=== PATIENT | male | born 1965 | race Caucasian/White ===

== ENCOUNTER 2024-09-15 08:05 | Inpatient (IN) | payer SELFPAY ==
[~2024-09-15] VITALS: Ht 180.3 cm; Wt 97.7 kg
[2024-09-15] VITALS (38 sets, daily range): BP systolic 117–184; BP diastolic 77–126; PULSE 56–80; RESP 5–19; TEMP 36.55848–36.9474; O2SAT 95–100
[2024-09-15] MEDS ORDERED: IODIXANOL 320 MG/ML 150ML BOTTLE IV ONE (08:18)
[2024-09-15] MEDS ORDERED: HEPARIN 1000 UNITS/ML 10ML ONE (08:18)
[2024-09-15] MEDS ORDERED: LIDOCAINE HCL 1% 20ML VIAL ONE (08:18)
[2024-09-15] MEDS ORDERED: EPINEPHRINE 0.1MG/ML (1:10,000) 10ML SYR ONE (08:19)
[2024-09-15] MEDS ORDERED: ATROPINE SULFATE 1MG/10ML SYR ONE (08:19)
[2024-09-15] MEDS ORDERED: MIDAZOLAM HCL 2 MG/2 ML VIAL ONE (08:23)
[2024-09-15] MEDS ORDERED: FENTANYL CITRATE/PF 50MCG/ML 2ML VIAL ONE (08:23)
[2024-09-15] MEDS: HEPARIN 5000 UNITS/ML VIAL IV ONE (08:24)
[2024-09-15] MEDS: ASPIRIN 325MG TABLET PO ONE (08:26)
[2024-09-15 08:32] LABS: BASOPHILS % 0.6 % (0.0-2.0); EOSINOPHILS % 0.8 % (0.0-5.0); HEMATOCRIT. 43.9 % (42.0-52.0); HEMOGLOBIN. 14.6 g/dL (14.0-18.0); LYMPHOCYTES % 19.6 % (20.0-50.0); MEAN CORPUSCULAR HEMOGLOBIN 30.3 pg (28.0-32.0); MEAN CORPUSCULAR HGB CONC 33.3 g/dL (31.0-37.0); MEAN CORPUSCULAR VOLUME 91.2 fL (80.0-94.0); MEAN PLATELET VOLUME 7.6 fl (7.4-10.4); PLATELET 286 x1000/uL (130-400); RED BLOOD CELL COUNT 4.81 mill/uL (4.7-6.1); RED CELL DISTRIBUTION WIDTH 13.7 % (11.6-14.6); WHITE BLOOD COUNT 10.1 x1000/uL (4.5-11.0)
[2024-09-15] MEDS ORDERED: VERAPAMIL HCL 2.5 MG/1 ML 2ML VIAL IV ONE (08:35)
[2024-09-15] MEDS ORDERED: ONDANSETRON HCL 4MG/2ML INJ ONE (08:36)
[2024-09-15 08:43] LABS: CHLORIDE 106 mEq/L (98-107); POTASSIUM 3.8 mEq/L (3.5-5.1); SODIUM 138 mEq/L (136-145)
[2024-09-15 08:44] LABS: CALCIUM 9.5 mg/dL (8.7-10.4); CARBON DIOXIDE 27 mEq/L (21-32)
[2024-09-15 08:49] LABS: CREATININE 0.9 mg/dL (0.6-1.3); GLUCOSE 151 mg/dL (70-105); UREA NITROGEN BLOOD 17 mg/dL (9-23)
[2024-09-15] MEDS ORDERED: HYDRALAZINE 20MG/ML VIAL ONE (09:37)
[2024-09-15 09:48] LABS: TROPONIN I HIGH SENSITIVITY 445 ng/L (3.0-53)
[2024-09-15] MEDS ORDERED: CLOPIDOGREL 75MG TABLET ONE (09:50)
[2024-09-15] MEDS ORDERED: ACETAMINOPHEN 325MG TABLET PO PRN ×3 (10:45→11:15)
[2024-09-15] MEDS ORDERED: GUAIFENESIN 200MG/10ML SUGAR FREE UDC PO PRN (10:45)
[2024-09-15] MEDS ORDERED: IPRATROPIUM/ALBUTEROL 0.5-3(2.5)MG/3ML NEB HHN PRN (10:45)
[2024-09-15] MEDS ORDERED: ONDANSETRON HCL 4MG/2ML INJ IV PRN (10:45)
[2024-09-15] MEDS ORDERED: ATROPINE SULFATE 1MG/10ML SYR IV PRN (11:15)
[2024-09-15] MEDS ORDERED: MORPHINE SULFATE/PF 1 MG/ML 100 MG in BAG 1 EACH IV PRN (11:45)
[2024-09-15] MEDS: LOSARTAN 25 MG TABLET PO SCH (12:15)
[2024-09-15] MEDS: NITROGLYCERIN 0.4MG TABLET SL SL PRN (12:16)
[2024-09-15] MEDS ORDERED: NALOXONE HCL 0.4MG/ML VIAL IV PRN (12:30)
[2024-09-15] MEDS: MORPHINE SULFATE 2 MG/ML INJ (NOT FOR IM USE) IV PRN (12:55)
[2024-09-15 13:00] LABS: HEMATOCRIT 44.7 % (42.0-52.0); HEMOGLOBIN 14.6 g/dL (14.0-18.0); MEAN CORPUSCULAR HEMOGLOBIN 30.1 pg (28.0-32.0); MEAN CORPUSCULAR HGB CONC 32.6 g/dL (31.0-37.0); MEAN CORPUSCULAR VOLUME 92.3 fL (80.0-94.0); PLATELET 259 x1000/uL (130-400); RED BLOOD CELL COUNT 4.84 mill/uL (4.7-6.1); RED CELL DISTRIBUTION WIDTH 14.3 % (11.6-14.6); WHITE BLOOD COUNT 8.2 x1000/uL (4.5-11.0)
[2024-09-15 13:03] LABS: VITAMIN B12 SERUM 424 pg/mL (211-911)
[2024-09-15 13:26] LABS: CALCIUM 9.3 mg/dL (8.7-10.4); CARBON DIOXIDE 24 mEq/L (21-32)
[2024-09-15 13:31] LABS: CREATININE 0.8 mg/dL (0.6-1.3); GLUCOSE 124 mg/dL (70-105); IRON 101 ug/dL (65-175)
[2024-09-15 13:32] LABS: LDL CHOLESTEROL 182 mg/dL (5-100); TRIGLYCERIDE 107 mg/dL (0-150); UREA NITROGEN BLOOD 14 mg/dL (9-23)
[2024-09-15 13:33] LABS: ALANINE AMINOTRANSFERASE 25 IU/L (10-49); ALBUMIN 4.5 g/dL (3.2-4.8); ASPARTATE AMINOTRANSFERASE 56 IU/L (<34); CHOLESTEROL 256 mg/dL (<200); HDL CHOLESTEROL 56 mg/dL (>55)
[2024-09-15 13:34] LABS: BILIRUBIN TOTAL 0.6 mg/dL (0.1-1.0); PROTEIN TOTAL 6.9 g/dL (6.0-8.3); TOTAL IRON BINDING CAPACITY 231 ug/dl (250-425)
[2024-09-15 13:36] LABS: THYROID STIMULATING HORMONE 0.73 uIU/mL (0.55-4.78)
[2024-09-15 13:49] LABS: CHLORIDE 105 mEq/L (98-107); POTASSIUM 3.9 mEq/L (3.5-5.1); SODIUM 139 mEq/L (136-145)
[2024-09-15] MEDS: CLONIDINE 0.1MG TABLET PO PRN (14:15)
[2024-09-15] MEDS ORDERED: HYDRALAZINE 20MG/ML VIAL IV PRN (16:00)
[2024-09-15 16:23] LABS: CREATINE KINASE MB FRACTION 210.7 ng/mL (0.5-3.6)
[2024-09-15] MEDS: AMLODIPINE 10MG TABLET PO SCH (16:29)
[2024-09-15] MEDS: CARVEDILOL 6.25 MG TABLET PO NR (16:29)
[2024-09-15 17:58] LABS: TROPONIN I HIGH SENSITIVITY 3088 ng/L (3.0-53)
[2024-09-15 19:19] LABS: TROPONIN I HIGH SENSITIVITY 36882 ng/L (3.0-53)
[2024-09-15] MEDS: CARVEDILOL 6.25 MG TABLET PO SCH (21:00)
[2024-09-15] MEDS ORDERED: METOPROLOL TARTRATE 25MG TABLET PO SCH (21:00)
[2024-09-15] MEDS: ATORVASTATIN CALCIUM 40MG TABLET PO SCH (21:18)
[2024-09-16] VITALS (22 sets, daily range): BP systolic 100–138; BP diastolic 55–92; PULSE 57–74; RESP 8–22; TEMP 36.78072–37.11408; O2SAT 94–99
[2024-09-16 02:52] LABS: CREATINE KINASE MB FRACTION > 300.0 ng/mL (0.5-3.6)
[2024-09-16 03:06] LABS: CREATINE KINASE 2253 IU/L (46-171)
[2024-09-16 04:17] LABS: TROPONIN I HIGH SENSITIVITY > 50000 ng/L (3.0-53)
[2024-09-16 06:48] LABS: CARBON DIOXIDE 27 mEq/L (21-32); CHLORIDE 102 mEq/L (98-107); POTASSIUM 3.9 mEq/L (3.5-5.1); SODIUM 138 mEq/L (136-145)
[2024-09-16 06:49] LABS: CALCIUM 9.2 mg/dL (8.7-10.4)
[2024-09-16 06:50] LABS: CREATINE KINASE MB FRACTION 287.3 ng/mL (0.5-3.6)
[2024-09-16 06:54] LABS: CREATININE 0.8 mg/dL (0.6-1.3); GLUCOSE 105 mg/dL (70-105); UREA NITROGEN BLOOD 13 mg/dL (9-23)
[2024-09-16 07:06] LABS: CREATINE KINASE 1736 IU/L (46-171)
[2024-09-16 07:09] LABS: BASOPHILS % 0.5 % (0.0-2.0); HEMATOCRIT. 43.1 % (42.0-52.0); HEMOGLOBIN. 14.8 g/dL (14.0-18.0); LYMPHOCYTES % 26.6 % (20.0-50.0); MEAN CORPUSCULAR HEMOGLOBIN 30.8 pg (28.0-32.0); MEAN CORPUSCULAR HGB CONC 34.2 g/dL (31.0-37.0); MEAN CORPUSCULAR VOLUME 89.9 fL (80.0-94.0); MEAN PLATELET VOLUME 7.6 fl (7.4-10.4); MONOCYTES % 8.4 % (2.0-8.0); NEUTROPHILS % 62.5 % (40.0-76.0); PLATELET 258 x1000/uL (130-400); RED BLOOD CELL COUNT 4.79 mill/uL (4.7-6.1); RED CELL DISTRIBUTION WIDTH 13.7 % (11.6-14.6)
[2024-09-16 07:55] LABS: TROPONIN I HIGH SENSITIVITY 47958 ng/L (3.0-53)
[2024-09-16] MEDS: ASPIRIN 81MG TABLET PO SCH (08:48)
[2024-09-16] MEDS: CLOPIDOGREL 75MG TABLET PO SCH (08:48)
[2024-09-16 12:13] LABS: TROPONIN I HIGH SENSITIVITY 33928 ng/L (3.0-53)
[2024-09-16] MEDS ORDERED: CLOP-31 MT (16:41)
[2024-09-16] MEDS ORDERED: ASPI-1497 MT ×2 (16:41→17:32)
[2024-09-16] MEDS ORDERED: LIP40 MT (16:41)
[2024-09-16] MEDS ORDERED: CLOP-31 PO (17:32)
[2024-09-16] MEDS ORDERED: COR6 PO (17:32)
[2024-09-16] MEDS ORDERED: AMLO10TA80 PO (17:32)
[2024-09-16] MEDS ORDERED: LIP40 PO (17:32)
[2024-09-17 09:10] LABS: FOLATE HEMATOCRIT 43.4 % (37.5-51.0)
== END 2024-09-16 13:00 | disposition home or self-care (01) | DRG 174 ==
LOC: ER 08:05 → CVICU 10:10 → EDBEDREQ 10:24 → EDBEDREQTM 10:24
PROVIDERS: ADMIT Internal Medicine; ATTEND Internal Medicine
PROC: 4A023N7 Measurement of Cardiac Sampling and Pressure, Left Heart, Percutaneous Approach (ICD-10-PCS; principal; 2024-09-15)
PROC: 027035Z Dilation of Coronary Artery, One Artery with Two Drug-eluting Intraluminal Devices, Percutaneous Approach (ICD-10-PCS; 2024-09-15)
PROC: B211YZZ Fluoroscopy of Multiple Coronary Arteries using Other Contrast (ICD-10-PCS; 2024-09-15)
PROC: B215YZZ Fluoroscopy of Left Heart using Other Contrast (ICD-10-PCS; 2024-09-15)
PROC: B240ZZ3 Ultrasonography of Single Coronary Artery, Intravascular (ICD-10-PCS; 2024-09-15)
DX: I21.29 ST elevation (STEMI) myocardial infarction involving other sites (principal); F17.210 Nicotine dependence, cigarettes, uncomplicated; I25.10 Atherosclerotic heart disease of native coronary artery without angina pectoris; I10 Essential (primary) hypertension; Z79.02 Long term (current) use of antithrombotics/antiplatelets; Z79.82 Long term (current) use of aspirin; Z79.899 Other long term (current) drug therapy; Z83.3 Family history of diabetes mellitus
CPT/HCPCS: 36415; 80048; 80053; 80061; 82550; 82553; 82607; 82747; 83036; 83540; 83550; 83735; 83880; 84100; 84443; 84484; 85014; 85025; 85027; 85347; 86850; 86900; 92928; 92978; 93005; 93306; 93458; 99291; A4606; A4663; C1725; C1753; C1769; C1874; C1887; C1893; J0360; J0461; J1644; J2250; J2270; J2405; J3010; J3490; Q9967